=== PATIENT | female | born 1945 | race Caucasian/White ===

== ENCOUNTER 2023-12-18 16:50 | Emergency (ER) | payer MEDICARE, OTHER, SELFPAY ==
[2023-12-18 17:00] VITALS: BP 135/49; BMI 32.3
[2023-12-18] MEDS: NSS 1000 IV (17:27)
[2023-12-18 17:56] LABS: % Basophils 0.3 % (0-2); % Eosinophils 0.7 % (0-6); % Immature Granulocytes 0.4 % (0-0.5); % Lymphocytes 7.7 % (20.5-51.1); % Monocytes 7.2 % (1.7-9.3); % Neutrophils 83.7 % (42.2-75.2); Absolute Eosinophils 0.1 10^3/uL (0-0.7); Absolute Immature Granulocytes 0.1 10^3/uL (0-0.05); Absolute Lymphocytes 1.2 10^3/uL (1.2-3.4); Absolute Monocytes 1.1 10^3/uL (0.1-0.6); Absolute Neutrophils 12.5 10^3/uL (1.4-6.5); Hematocrit 35.4 % (37.0-47.0); Hemoglobin 12.3 g/dL (12.0-16.0); Mean Corp Hgb Conc. 34.7 g/dL (33.0-37.0); Mean Corpuscular Hgb 30.7 pg (27.0-31.0); Mean Corpuscular Volume 88.3 fL (81.0-99.0); Mean Platelet Volume 10.7 fL (7.4-10.4); Nucleated Red Blood Cells % 0 %; Platelet Count 180 10^3/uL (130-400); Red Blood Cell Count 4.01 10^6/uL (4.20-5.40); Red Cell Dist. Width 12.5 % (11.5-14.5); White Blood Cell Count 14.9 10^3/uL (4.8-10.8)
[2023-12-18 18:19] LABS: ALT (SGPT) 30 U/L (0-35); AST (SGOT) 33 U/L (14-36); Albumin 4.6 g/dl (3.5-5.0); Alkaline Phosphatase 130 U/L (38-126); Blood Urea Nitrogen 49 mg/dl (7-17); Calcium 9.7 mg/dl (8.4-10.2); Carbon Dioxide 21 mmol/L (22-30); Chloride 109 mmol/L (98-107); Estimated Creatinine Clearance 31 ml/min; Glucose 95 mg/dl (70-99); Lipase 290 U/L (23-300); Potassium 4.8 mmol/L (3.5-5.1); Sodium 140 mmol/L (135-145); Total Bilirubin 0.4 mg/dl (0.2-1.3); Total Protein 6.8 g/dl (6.3-8.2); eGFR 38.99
[2023-12-18 19:00] VITALS: BP 111/69
[2023-12-18] MEDS: LR 1000 IV (19:07)
--- NOTE | 2023-12-18 19:49 | ED.GENMED ---
History of Present Illness
General
Chief Complaint: Abdominal Symptoms
Time Seen by Provider: 12/18/23 17:02
History of Present Illness
History of Present Illness:
78-year-old female with history of hypertension presents to the emergency department for evaluation of sudden onset of abdominal pain, vomiting, and diarrhea. Has been unable to tolerate any p.o. fluids since. Denies any fevers but did have some
chills during the episode of vomiting. No current abdominal pain. No prior abdominal surgeries. Denies any recent international travel or suspicious food intake. No ill contacts
Review of Systems
Review of Systems
Allergies reviewed?: Yes
All Other Systems: ROS reviewed and negative except as documented in HPI and ROS
Phy Exam
Physical Exam
Physical Exam:
GEN: Well appearing, NAD, WDWN
HEENT: Oral mucosa moist, no scleral icterus
Cardiac: Regular rate
Lung: No respiratory distress, no tachypnea
Abdomen: Soft, nontender
MSK: No gross deformity or injuries
Skin: Good color, no pallor or jaundice, no rashes
Neuro: AO x3, moves all extremities freely
Psych: Calm, cooperative
Course
Orders/Labs/Results
Orders:
Orders
12/18/23 17:07
0.9% Sodium Chloride 1000 ml [Nss] 1,000 ml IV BOLUS
12/18/23 17:26
Complete Blood Count/With Diff Urgent
Comprehensive Metabolic Panel Urgent
Lipase Urgent
12/18/23 18:22
Lactated Ringers [Lr] 1,000 ml IV BOLUS
Abnormal Lab Results
12/18/23
17:26
WBC 14.9 H 10^3/uL
(4.8-10.8)
RBC 4.01 L 10^6/uL
(4.20-5.40)
Hct 35.4 L %
(37.0-47.0)
MPV 10.7 H fL
(7.4-10.4)
Abs Immat Gran (auto) 0.1 H 10^3/uL
(0-0.05)
Absolute Neuts (auto) 12.5 H 10^3/uL
(1.4-6.5)
Absolute Monos (auto) 1.1 H 10^3/uL
(0.1-0.6)
Neutrophils % 83.7 H %
(42.2-75.2)
Lymphocytes % 7.7 L %
(20.5-51.1)
Chloride 109 H mmol/L
(98-107)
Carbon Dioxide 21 L mmol/L
(22-30)
BUN 49 H mg/dl
(7-17)
Creatinine 1.4 H mg/dL
(0.6-1.0)
Alkaline Phosphatase 130 H U/L
(38-126)
12/18/23 17:26
12/18/23 17:26
Vital Signs
Initial and Last Documented VS:
Initial Vital Signs
Temp Pulse Resp BP Pulse Ox
98.1 F 80 17 135/49 97
12/18/23 17:00 12/18/23 17:00 12/18/23 17:00 12/18/23 17:00 12/18/23 17:00
Last Documented Vital Signs
Temp Pulse Resp BP Pulse Ox
98.1 F 83 16 111/69 97
12/18/23 17:00 12/18/23 19:00 12/18/23 19:00 12/18/23 19:00 12/18/23 19:00
MDM/Problems Addressed
MDM/Problems Addressed:
Patient is benign abdominal exam thus no imaging is indicated. She was given IV fluids aggressively, does note that she has a history of chronic kidney disease but is uncertain of her baseline creatinine. Degree of BUN elevation is out of
proportion to creatinine thus it is likely prerenal in nature. Given 2 L of crystalloid, no further vomiting noted in the emergency department. Likely self-limited viral syndrome
*Critical Care Note
Total Time (30-74mins, 75-104mins- exclusive of procedures): Not Applicable
ED Attending Note
-
Portions of this chart may have been created with voice recognition software.� Occasional wrong word or��sound alike� substitutions may have occurred due to the inherent limitations of voice recognition software.
Discharge Plan
Departure
Patient Disposition: Home (Routine Discharge)
Date of Disposition: 12/18/23
Time of Disposition: 19:50
Patient with high blood pressure during this ER visit?: No
Discharge Problem:
Gastroenteritis
Instructions: Nausea and Vomiting, Adult (DC)
Prescriptions:
New
ondansetron 4 mg tablet,disintegrating
4 mg PO TIDPRN PRN (Reason: nausea/vomiting) Qty: 10 0RF
No Action
nebivolol [Bystolic] 10 mg Tablet
10 mg PO DAILY
omeprazole [Prilosec] 10 mg Capsule,Delayed Release(Dr/Ec)
10 mg PO DAILY
candesartan 8 mg Tablet
8 mg PO DAILY
hydrochlorothiazide 12.5 mg Tablet
12.5 mg PO DAILY
atorvastatin 10 mg Tablet
10 mg PO DAILY
alprazolam [Xanax] 0.5 mg Tablet
0.25 mg PO DAILY PRN (Reason: anxiety)
Referrals:
Janes Billings MD [Family Provider] -
Activity Restrictions/Additional Instructions:
Return if not improved in 48 hours
If you develop significant abdominal pain, please return for evaluation
Interventions
Interventions:
*Risk Screen - Suicide Last Done: 12/18/23 19:11
*General Assessment Last Done: 12/18/23 19:11
*Neglect/Abuse Screening Last Done: 12/18/23 19:08
ED- Fall Risk Assessment Last Done: 12/18/23 17:35
*ED COVID-19 Vaccine History Last Done: 12/18/23 19:11
XX-Tleoan-Fehyrbdghz Assessment Last Done: 12/18/23 19:08
Discharge Date and Time
Print Language: MAORI
[2023-12-18 19:57] VITALS: BP 106/66
== END 2023-12-18 20:14 | disposition home or self-care (01) ==
LOC: EMR 16:50
PROVIDERS: Physician Assistant; EMERGENCY PHYSICIAN Emergency Medicine; FAMILY PHYSICIAN Family Medicine
DX: R10.9 Unspecified abdominal pain (principal); R11.10 Vomiting, unspecified; R19.7 Diarrhea, unspecified; K52.9 Noninfective gastroenteritis and colitis, unspecified; I12.9 Hypertensive chronic kidney disease with stage 1 through stage 4 chronic kidney disease, or unspecified chronic kidney disease; N18.9 Chronic kidney disease, unspecified
CPT/HCPCS: 99284; 96360; 80053; 83690; 85025

== ENCOUNTER 2024-05-27 16:54 | Emergency (ER) | payer MEDICARE, OTHER, SELFPAY ==
[2024-05-27 17:06] VITALS: BP 126/86
[2024-05-27 17:42] LABS: % Basophils 0.1 % (0-2); % Eosinophils 1.4 % (0-6); % Immature Granulocytes 0.4 % (0-0.5); % Lymphocytes 26.3 % (20.5-51.1); % Monocytes 8.7 % (1.7-9.3); % Neutrophils 63.1 % (42.2-75.2); Absolute Eosinophils 0.1 10^3/uL (0-0.7); Absolute Monocytes 0.7 10^3/uL (0.1-0.6); Absolute Neutrophils 4.8 10^3/uL (1.4-6.5); Hematocrit 31.8 % (37.0-47.0); Hemoglobin 11.4 g/dL (12.0-16.0); Mean Corp Hgb Conc. 35.8 g/dL (33.0-37.0); Mean Corpuscular Hgb 30.2 pg (27.0-31.0); Mean Corpuscular Volume 84.4 fL (81.0-99.0); Mean Platelet Volume 9.9 fL (7.4-10.4); Nucleated Red Blood Cells % 0 %; Platelet Count 134 10^3/uL (130-400); Red Blood Cell Count 3.77 10^6/uL (4.20-5.40); White Blood Cell Count 7.6 10^3/uL (4.8-10.8)
[2024-05-27 17:56] LABS: COVID-19 Antigen Negative (Negative)
[2024-05-27 18:08] LABS: ALT (SGPT) 26 U/L (0-35); AST (SGOT) 32 U/L (14-36); Albumin 4.3 g/dl (3.5-5.0); Alkaline Phosphatase 88 U/L (38-126); Blood Urea Nitrogen 31 mg/dl (7-17); Calcium 8.7 mg/dl (8.4-10.2); Carbon Dioxide 21 mmol/L (22-30); Chloride 96 mmol/L (98-107); Glucose 101 mg/dl (70-99); Potassium 4.2 mmol/L (3.5-5.1); Sodium 130 mmol/L (135-145); Total Bilirubin 0.6 mg/dl (0.2-1.3); Total Protein 6.8 g/dl (6.3-8.2); eGFR 35.67
--- NOTE | 2024-05-27 21:22 | ED.GENMED ---
History of Present Illness
<Stuart Tim DO, Resident - Last Filed: 05/27/24 22:04>
General
Chief Complaint: Cough
Source: patient, records and family
Time Seen by Provider: 05/27/24 21:04
History of Present Illness
History of Present Illness:
79 female past medical history of hyperlipidemia, hypertension, anxiety presents for cough of 1 day duration. Patient reports she saw her PCP yesterday who prescribed her Z-Jaiden, she is also reporting that she had 1 fainting yesterday and 1 episode
of diarrhea today. Patient reports that she multiple episodes of fainting in the past, 1 previous episode when sick with the flu last year. Patient reports she stood up walked across her apartment and then approximately 30 seconds after standing
she passed out. This was unwitnessed, patient lives alone patient reports she did not hit her head. In the emergency department patient is afebrile, white count within normal limits, breathing comfortably on room air.
Past History
<Stuart Tim DO, Resident - Last Filed: 05/27/24 22:04>
Past History
ED Past Medical History: HTN, Hypercholesterolemia and Psychiatric (Anxiety)
Review of Systems
<Stuart Tim DO, Resident - Last Filed: 05/27/24 22:04>
Review of Systems
Constitutional: Reports no symptoms
Respiratory: Reports cough
Cardiac: Reports no symptoms
ABD/GI: Reports diarrhea
Musculoskeletal: Reports no symptoms
Neurological: Reports no symptoms; Denies dizzy
Phy Exam
<Stuart Tim DO, Resident - Last Filed: 05/27/24 22:04>
General Physical Exam
General Presentation: well appearing and no apparent distress
Cardiovascular Exam
Cardiovascular Exam: regular rate/rhythm and no murmur
Pulmonary Exam
Pulmonary Exam: no respiratory distress, no rales, no rhonchi and other (Wheezing present on cough, very slight wheezing present in lower lung [place])
Gastrointestinal Exam
Gastrointestinal Exam: non tender, soft and non distended
Musculoskeletal Exam
Musculoskeletal Exam: edema (Trace/+1 edema)
Course
<Stuart Tim DO, Resident - Last Filed: 05/27/24 22:04>
Orders/Labs/Results
Orders:
Orders
05/27/24 17:11
Electrocardiogram (*1) Urgent
Reason for Study: Syncope
CXR2 [CR Chest - 2 Views ] Urgent
Comment:
Reason For Exam: Cough
05/27/24 17:12
EKG- Treatment ONCE
05/27/24 17:27
CMP [Comprehensive Metabolic Panel] Urgent
COVID-19 Antigen Urgent
Source: Nasal Swab
Complete Blood Count/With Diff Urgent
Influenza A+B Rapid Molecular Urgent
IMELDA Source: Nasal Swab
Specimen Description:
05/27/24 21:53
Prednisone [Deltasone] 50 mg PO NOW STA
Abnormal Lab Results
05/27/24
17:27
RBC 3.77 L 10^6/uL
(4.20-5.40)
Hgb 11.4 L g/dL
(12.0-16.0)
Hct 31.8 L %
(37.0-47.0)
Absolute Monos (auto) 0.7 H 10^3/uL
(0.1-0.6)
Sodium 130 L mmol/L
(135-145)
Chloride 96 L mmol/L
(98-107)
Carbon Dioxide 21 L mmol/L
(22-30)
BUN 31 H mg/dl
(7-17)
Creatinine 1.5 H mg/dL
(0.6-1.0)
Glucose 101 H mg/dl
(70-99)
05/27/24 17:27
01/04/25 17:27
Vital Signs
Initial and Last Documented VS:
Initial Vital Signs
Temp Pulse Resp BP Pulse Ox
98.6 F 75 20 126/86 97
05/27/24 17:06 05/27/24 17:06 05/27/24 17:06 05/27/24 17:06 05/27/24 17:06
Last Documented Vital Signs
Temp Pulse Resp BP Pulse Ox
98.6 F 75 20 126/86 97
05/27/24 17:06 05/27/24 17:06 05/27/24 17:06 05/27/24 17:06 05/27/24 17:06
<Wilian Tirado MD - Last Filed: 05/27/24 22:12>
Orders/Labs/Results
Orders:
Orders
05/27/24 17:11
Electrocardiogram (*1) Urgent
Reason for Study: Syncope
CXR2 [CR Chest - 2 Views ] Urgent
Comment:
Reason For Exam: Cough
05/27/24 17:12
EKG- Treatment ONCE
05/27/24 17:27
CMP [Comprehensive Metabolic Panel] Urgent
COVID-19 Antigen Urgent
Source: Nasal Swab
Complete Blood Count/With Diff Urgent
Influenza A+B Rapid Molecular Urgent
IMELDA Source: Nasal Swab
Specimen Description:
05/27/24 21:53
Prednisone [Deltasone] 50 mg PO NOW STA
Abnormal Lab Results
05/27/24
17:27
RBC 3.77 L 10^6/uL
(4.20-5.40)
Hgb 11.4 L g/dL
(12.0-16.0)
Hct 31.8 L %
(37.0-47.0)
Absolute Monos (auto) 0.7 H 10^3/uL
(0.1-0.6)
Sodium 130 L mmol/L
(135-145)
Chloride 96 L mmol/L
(98-107)
Carbon Dioxide 21 L mmol/L
(22-30)
BUN 31 H mg/dl
(7-17)
Creatinine 1.5 H mg/dL
(0.6-1.0)
Glucose 101 H mg/dl
(70-99)
05/27/24 17:27
05/27/24 17:27
Vital Signs
Initial and Last Documented VS:
Initial Vital Signs
Temp Pulse Resp BP Pulse Ox
98.6 F 75 20 126/86 97
05/27/24 17:06 05/27/24 17:06 05/27/24 17:06 05/27/24 17:06 05/27/24 17:06
Last Documented Vital Signs
Temp Pulse Resp BP Pulse Ox
98.6 F 75 20 126/86 97
05/27/24 17:06 05/27/24 17:06 05/27/24 17:06 05/27/24 17:06 05/27/24 17:06
<Stuart Tim DO, Resident - Last Filed: 05/27/24 22:04>
MDM/Problems Addressed
Differential Diagnosis Includes:
Viral upper respiratory illness, fainting, anxiety
MDM/Problems Addressed:
Patient reports she has had a cough starting yesterday, saw her primary care who prescribed her Z-Jaiden
Patient reports she had 1 episode of fainting yesterday, patient reports she was sitting at home stood up and walked for approximately 30 seconds and then passed out afterwards
Patient denies any prodrome or symptoms afterward. Fall was unwitnessed, patient lives alone patient does not believe she hit her head
Unsure etiology of fainting, patient reports she has had multiple episodes of fainting in the past, it does not sound like orthostatic hypotension or vasovagal syncope
Patient reports no history of cardiac disease, arrhythmia or valve disease
Unsure etiology of fainting, likely patient is just sick and she passes out when she becomes sick
In the emergency department patient is resting comfortably on room air, patient afebrile, vitals within normal limits, white count within normal limits
Slight wheezing on exam, worse with cough
Chest x-ray did not demonstrate any pneumonia
EKG demonstrates normal sinus rhythm, normal QT, no heart block
Chemistry demonstrates sodium 130, patient reports she has been drinking a lot recently
Urine very light in color in emergency department
+1 edema present lower extremity, very likely hypervolemic hyponatremia secondary to polydipsia
Patient reports no confusion, no difficulty concentrating, does report some slight lightheadedness at times
Offered patient Mucinex for congestion, patient reports she does not want any as she believes it may have caused her to pass out in the past
Offered Flonase, patient declined stating that they have at home
Encouraged reducing amount of fluid patient is consuming by mouth
Encourage follow-up with PCP for recheck BMP in 1 week
Encourage patient to continue taking her Z-Jaiden
Very likely this is viral bronchitis
Will prescribe patient 5-day course of oral steroids, will give 1 dose in the emergency department as wheezing was heard on exam
Will prescribe patient albuterol rescue inhaler
<Stuart Tim DO, Resident - Last Filed: 05/27/24 22:04>
*Critical Care Note
Total Time (30-74mins, 75-104mins- exclusive of procedures): Not Applicable
ED Attending Note
<Stuart Tim DO, Resident - Last Filed: 05/27/24 22:04>
-
Portions of this chart may have been created with voice recognition software.� Occasional wrong word or��sound alike� substitutions may have occurred due to the inherent limitations of voice recognition software.
<Wilian Tirado MD - Last Filed: 05/27/24 22:12>
ED Attending Note
Patient seen and examined by attending physician: Yes
I performed a history and physical exam of patient and discussed management with resident, I reviewed resident's note and agree with documented findings and plan of care.: Yes
ED Attending Note:
79-year-old female presents with ongoing cough. Some shortness of breath earlier. Started on azithromycin yesterday. Denies pleuritic pain. Feels somewhat better at this time. Drinking significant fluids.
On exam patient is nontoxic in no distress. Lungs have mild expiratory wheezing. No respiratory distress. Heart regular rate and rhythm. Abdomen warm and dry.
Minimal hyponatremia. All other labs stable. Chest x-ray negative. Will do course of steroids. Albuterol inhaler. Continue azithromycin. Limit fluids and follow-up
Discharge Plan
Departure
Patient with high blood pressure during this ER visit?: Yes
Condition: Good
Discharge Problem:
Acute bronchitis
Instructions: Acute Bronchitis, Adult (DC), Cough, Adult (DC), BLOOD PRESSURE
Prescriptions:
New
prednisone 50 mg tablet
50 mg PO DAILY Qty: 4 0RF
albuterol sulfate 90 mcg/actuation HFA aerosol inhaler
2 inh inhalation Q6H PRN (Reason: shortness of breath or wheezing) Qty: 8.5 0RF
No Action
nebivolol [Bystolic] 10 mg Tablet
10 mg PO DAILY
omeprazole [Prilosec] 10 mg Capsule,Delayed Release(Dr/Ec)
10 mg PO DAILY
candesartan 8 mg Tablet
8 mg PO DAILY
hydrochlorothiazide 12.5 mg Tablet
12.5 mg PO DAILY
atorvastatin 10 mg Tablet
10 mg PO DAILY
alprazolam [Xanax] 0.5 mg Tablet
0.25 mg PO DAILY PRN (Reason: anxiety)
ondansetron 4 mg tablet,disintegrating
4 mg PO TIDPRN PRN (Reason: nausea/vomiting) Qty: 10 0RF
Referrals:
Janes Billings MD [Family Provider] - Call in 1-3 days for appt
Activity Restrictions/Additional Instructions:
Please take prednisone 50 mg by mouth for 4 days
Please use albuterol inhaler as needed for wheezing, 2 puffs every 6 hours
Please reduce the amount of fluids you are consuming by mouth.
Please schedule a follow-up appointment with your primary care physician, call 1-3 days for an appointment. During that time please request that they recheck your sodium with a BMP ideally within a week
Please return to the emergency department if you notice fevers above 104, severe wheezing, difficulty breathing or with any concerns
Interventions
Interventions:
*Risk Screen - Suicide Last Done: 05/27/24 17:06
*General Assessment Last Done: 05/27/24 17:06
*ED COVID-19 Vaccine History Last Done: 05/27/24 17:06
Discharge Date and Time
Print Language: CHADIAN
[2024-05-27] MEDS: DELTASONE 50 MG PO (22:17)
== END 2024-05-27 22:26 | disposition home or self-care (01) ==
LOC: EMR 16:54
PROVIDERS: EMERGENCY PHYSICIAN Emergency Medicine; FAMILY PHYSICIAN Family Medicine
DX: R55 Syncope and collapse (principal); R19.7 Diarrhea, unspecified; J20.9 Acute bronchitis, unspecified; R60.0 Localized edema; Z11.52 Encounter for screening for COVID-19; E87.1 Hypo-osmolality and hyponatremia; E78.00 Pure hypercholesterolemia, unspecified; I10 Essential (primary) hypertension; F41.9 Anxiety disorder, unspecified
CPT/HCPCS: 99283; 71046; 80053; 85025; 87502; 87811; 93005